=== PATIENT | female | born 1940 | race Asian ===

== ENCOUNTER 2019-05-28 11:43 | Emergency (ER) | payer OTHER ==
[~2019-05-28] VITALS: Ht 160 cm; Wt 59.0 kg
[2019-05-28 11:50] VITALS: BP 173/70
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
--- NOTE | 2019-05-28 13:14 | Diagnostic Imaging Report ---
EXAM: XR Right Hand Complete, 3 or More Views CLINICAL HISTORY: TRAUMA TECHNIQUE: Frontal, lateral and oblique views of the right hand. COMPARISON: None FINDINGS: Bones/joints: No displaced fracture or dislocation identified. Osteopenia. Degenerative changes of the interphalangeal joints, most prominent in the right fourth and fifth digits are joints. Degenerative changes of the right first and fifth MCP joints. Soft tissues: Normal. IMPRESSION: No displaced fracture or dislocation identified.
--- NOTE | 2019-05-28 13:31 | Diagnostic Imaging Report ---
EXAM: CT Cervical Spine Without Intravenous Contrast CLINICAL HISTORY: TRAUMA TECHNIQUE: Axial computed tomography images of the cervical spine without intravenous contrast. CTDI is 3.5 mGy and DLP is 91.8 mGy-cm. One or more of the following dose reduction techniques were used: automated exposure control, adjustment of the mA and/or kV according to patient size, use of iterative reconstruction technique. COMPARISON: None FINDINGS: Bones: Osteopenia. Mild reversal of the normal cervical lordosis. No acute fracture or bony lesion. Nonspecific enlargement of the right hypoglossal canal. Disc spaces: No subluxation. Degenerative changes of the spine. Soft tissues: Normal. Other: Atherosclerotic changes of the vasculature. Heterogeneous left thyroid lobe could be further evaluated with nonemergent dedicated ultrasound if clinically indicated. Emphysematous changes of the visualized upper lungs. IMPRESSION: No acute traumatic abnormality.
[2019-05-28] MEDS ORDERED: ROBAXIN-500MG ORAL (13:35)
[2019-05-28] MEDS ORDERED: IBUPROFEN600 MG ORAL (13:35)
[2019-05-28 13:40] VITALS: BP 173/70
[2019-05-28] MEDS ORDERED: Albuterol ud Inhalation ONE (14:56)
[2019-05-28] MEDS ORDERED: Ipratropium 0.02% Inh Soln 2.5ml UD ONE (14:56)
== END 2019-05-28 13:40 | disposition home or self-care (01) ==
LOC: EDBD 11:43 → EMR 12:20
DX: S16.1XXA Strain of muscle, fascia and tendon at neck level, initial encounter (principal); M85.80 Other specified disorders of bone density and structure, unspecified site; S60.221A Contusion of right hand, initial encounter; V43.62XA Car passenger injured in collision with other type car in traffic accident, initial encounter; Y92.410 Unspecified street and highway as the place of occurrence of the external cause; E11.9 Type 2 diabetes mellitus without complications; I10 Essential (primary) hypertension; F32.9 Major depressive disorder, single episode, unspecified; E78.5 Hyperlipidemia, unspecified
CPT/HCPCS: 72125; 99284